=== PATIENT | male | born 1970 | race Caucasian/White ===

== ENCOUNTER 2018-09-30 12:01 | Emergency (ER) | payer SELFPAY ==
[2018-09-30] MEDS ORDERED: Naproxen 500 MG TAB ONE (12:53)
== END 2018-09-30 12:55 | disposition home or self-care (01) ==
LOC: ERS 12:01
DX: S61.215A Laceration without foreign body of left ring finger without damage to nail, initial encounter (principal); W26.0XXA Contact with knife, initial encounter
CPT/HCPCS: 99282

== ENCOUNTER 2022-03-29 11:55 | Day surgery (SDC) | payer OTHER ==
[2022-03-29] MEDS ORDERED: Oxymetazoline HCl 0.05% (30 ML BOT) ONE ×2 (12:29→15:18)
[2022-03-29] MEDS ORDERED: Lidocaine 1% (PF) 30 ML VIAL ONE (15:18)
[2022-03-29] MEDS ORDERED: Bacitracin Zinc Ointment 30 gm TUBE ONE (15:18)
[2022-03-29] MEDS ORDERED: EPINEPHrine 1 MG/ML AMP ONE (15:18)
[2022-03-29] MEDS ORDERED: fentaNYL Citrate/PF 100 MCG/2 ML SYRINGE ONE (15:25)
[2022-03-29] MEDS ORDERED: Rocuronium Bromide 10 MG/ML (10ML VIAL) ONE (15:35)
[2022-03-29] MEDS ORDERED: Glycopyrrolate 0.2 MG/ML 5 ML SYRINGE ONE (15:35)
[2022-03-29] MEDS ORDERED: PROPOFOL 200 MG/20 ML VIAL ONE (15:35)
[2022-03-29] MEDS ORDERED: Dexamethasone 20 MG/5 ML VIAL ONE (15:35)
[2022-03-29] MEDS ORDERED: Ondansetron PF 4 MG/2 ML Vial ONE (15:35)
[2022-03-29] MEDS ORDERED: Lidocaine 1% MPF 2 ML VIAL ONE (15:35)
[2022-03-29] MEDS ORDERED: NEOSTIGMINE 3 MG/3 ML SYR 3 MG/3 ML SYRINGE ONE (15:35)
== END 2022-03-29 17:39 | disposition home or self-care (01) ==
LOC: SDC 11:55
PROVIDERS: ATTEND Specialist
PROC: 09SL8ZZ Reposition Nasal Turbinate, Via Natural or Artificial Opening Endoscopic (ICD-10-PCS; principal; 2022-03-29)
PROC: 09SM0ZZ Reposition Nasal Septum, Open Approach (ICD-10-PCS; principal; 2022-03-29)
DX: J34.2 Deviated nasal septum (principal); J34.3 Hypertrophy of nasal turbinates; F17.210 Nicotine dependence, cigarettes, uncomplicated; Z79.899 Other long term (current) drug therapy
CPT/HCPCS: J0171; J1100; J2001; J2405; J2704